=== PATIENT | female | born 1960 | race Caucasian/White ===

== ENCOUNTER 2020-04-18 12:34 | Emergency (ER) | payer MEDICAID ==
[~2020-04-18] VITALS: Ht 162.6 cm; Wt 75.7 kg
[2020-04-18] MEDS ORDERED: doxycycline inj 100 MG in normal saline 100ml IV soln 100 ML IV STA (14:59)
[2020-04-18 15:22] LABS: BASOPHILS # (AUTO) 0.1 X10'3 (0-0.2); EOSINOPHILS # (AUTO) 0.3 X10'3 (0-0.9); HEMATOCRIT 43.4 % (35.0-45.0); HEMOGLOBIN 14.6 g/dl (12.0-16.0); LYMPHOCYTES # (AUTO) 1.2 X10'3 (1.1-4.8); LYMPHOCYTES % (AUTO) 18.4 % (21-51); MEAN CORPUSCULAR HEMOGLOBIN 31.4 PG (27.0-31.0); MEAN CORPUSCULAR HGB CONC 33.7 g/dL (33.0-36.5); MEAN CORPUSCULAR VOLUME 93.1 FL (78-98); MEAN PLATELET VOLUME 7.8 FL (7.4-10.4); MONOCYTES # (AUTO) 0.5 X10'3 (0-0.9); MONOCYTES % (AUTO) 7.7 % (2-12); NEUTROPHILS # (AUTO) 4.5 X10'3 (1.8-7.7); NEUTROPHILS % (AUTO) 68.9 % (42-75); PLATELET COUNT 336 X10'3 (140-440); RED BLOOD COUNT 4.66 X10'6 (4.20-5.60); RED CELL DISTRIBUTION WIDTH 13.3 % (11.5-14.5); WHITE BLOOD COUNT 6.6 X10'3 (4.5-11.0)
[2020-04-18 15:24] LABS: ALANINE AMINOTRANSFERASE 23 U/L (12-78); ALBUMIN 4.1 G/DL (3.4-5.0); ALKALINE PHOSPHATASE 114 IU/L (46-116); ANION GAP 11 (8-16); ASPARTATE AMINO TRANSFERASE 24 U/L (10-37); BILIRUBIN,TOTAL 0.4 MG/DL (0.1-1.0); BLOOD UREA NITROGEN 12 MG/DL (7-18); BUN/CREATININE RATIO 14.1 (6.6-38.0); CALCIUM 9.1 MG/DL (8.5-10.1); CHLORIDE 98 MMOL/L (99-107); CREATININE 0.85 MG/DL (0.40-0.90); GLUCOSE 85 MG/DL (70-104); POTASSIUM 4.3 MMOL/L (3.5-5.1); SODIUM 137 MMOL/L (135-145); TOTAL CARBON DIOXIDE 28.3 MMOL/L (24-32); TOTAL PROTEIN 8.3 G/DL (6.4-8.2); eGFR 69 ML/MIN
[2020-04-18] MEDS ORDERED: DOXY100C77 PO (15:35)
--- NOTE | 2020-04-18 17:39 | NUR ---
CALLED PEDRITO TAVAREZ. ORDERED: ELEVATE LOWER EXTREMITIES RECHECK BP IN 20 MINUTES.
[2020-04-18] MEDS ORDERED: cloNIDine 0.1 mg tablet PO ONE (18:10)
[2020-04-18 18:28] VITALS: BP 167/101
== END 2020-04-18 18:30 | disposition home or self-care (01) ==
LOC: ER 12:36
DX: S81.802A Unspecified open wound, left lower leg, initial encounter (principal); M19.90 Unspecified osteoarthritis, unspecified site; Z98.890 Other specified postprocedural states; X58.XXXA Exposure to other specified factors, initial encounter; Y93.89 Activity, other specified; Y92.89 Other specified places as the place of occurrence of the external cause; Y99.8 Other external cause status
CPT/HCPCS: 36415; 80053; 85025; 96365; 99284; J3490

== ENCOUNTER 2020-04-24 08:39 | Outpatient (CLI) | payer MEDICAID ==
[~2020-04-24 08:39] MED LIST: DOXY100C77 PO
[2020-04-24] MEDS ORDERED: LIDOcaine 2% 5ml jelly ONE ×2 (09:16→09:32)
== END 2020-04-24 23:59 | disposition home or self-care (01) ==
LOC: WOUND CARE 08:39 → EDSTATUS 09:00 → WOUND CARE 23:59
PROVIDERS: ATTEND Nurse Practitioner Family
DX: L97.222 Non-pressure chronic ulcer of left calf with fat layer exposed (principal); S81.802D Unspecified open wound, left lower leg, subsequent encounter; M19.90 Unspecified osteoarthritis, unspecified site; Z98.890 Other specified postprocedural states; Z87.891 Personal history of nicotine dependence; X58.XXXD Exposure to other specified factors, subsequent encounter
CPT/HCPCS: G0463

== ENCOUNTER 2020-05-08 10:22 | Outpatient (CLI) | payer MEDICAID, OTHER | END 2020-05-08 23:59 | disposition home or self-care (01) | LOC: WOUND CARE 10:22 | PROVIDERS: ATTEND Nurse Practitioner Family | DX: S81.802D Unspecified open wound, left lower leg, subsequent encounter (principal); M19.90 Unspecified osteoarthritis, unspecified site; Z98.890 Other specified postprocedural states; Z87.891 Personal history of nicotine dependence; X58.XXXD Exposure to other specified factors, subsequent encounter | CPT/HCPCS: G0463 ==

== ENCOUNTER 2020-05-13 13:05 | Emergency (ER) | payer MEDICAID ==
[~2020-05-13] VITALS: Ht 162.6 cm; Wt 68.2 kg
[2020-05-13 13:10] VITALS: BP 189/132
[2020-05-13] MEDS ORDERED: gentamicin 0.1% topical ointment 15gm TP ONE (15:35)
== END 2020-05-13 16:10 | disposition home or self-care (01) ==
LOC: ER 13:05
DX: L97.929 Non-pressure chronic ulcer of unspecified part of left lower leg with unspecified severity (principal); Z48.01 Encounter for change or removal of surgical wound dressing; M19.90 Unspecified osteoarthritis, unspecified site; Z98.890 Other specified postprocedural states
CPT/HCPCS: 99283

== ENCOUNTER 2020-06-20 14:00 | Inpatient (IN) | payer MEDICAID ==
[~2020-06-20] VITALS: Ht 162.6 cm; Wt 62.7 kg
[2020-06-20] MEDS ORDERED: acetaminophen 325mg tablet PO PRN ×2 (14:55)
[2020-06-20] MEDS ORDERED: ondansetron/PF 4mg/2ml inj IV PRN (14:55)
[2020-06-20] MEDS ORDERED: HYDROcodone/acetaminophen 5mg/325mg tablet PO PRN (14:55)
[2020-06-20] MEDS ORDERED: mag hydrox/Alum hydrox/simeth 30ml oral suspension PO PRN (14:55)
[2020-06-20] MEDS ORDERED: metoclopramide 5 mg/ml inj IV PRN (14:55)
[2020-06-20] MEDS ORDERED: bisacodyl 10mg suppository rectal RC PRN (14:55)
[2020-06-20] MEDS ORDERED: temazepam 15mg capsule PO PRN (14:55)
[2020-06-20] MEDS ORDERED: magnesium hydroxide 30ml (MOM) UD suspension PO PRN (14:55)
[2020-06-20] MEDS ORDERED: magnesium 4gm in 100ml NS 100 ML IV PRN (15:00)
[2020-06-20] MEDS ORDERED: magnesium Cl slow-release 64mg tablet PO PRN (15:00)
[2020-06-20] MEDS ORDERED: potassium Cl 20 mEq SR tablet PO PRN ×2 (15:00)
[2020-06-20] MEDS ORDERED: potassium Cl 40MEQ/1/2NS 520ml 520 ML IV PRN ×2 (15:00)
[2020-06-20] MEDS ORDERED: CefTRIAXone/D5W-Rocephin 1gm 50 ML IV ONE (15:00)
[2020-06-20] MEDS ORDERED: acetaminophen 650mg rectal suppository RC PRN (15:00)
[2020-06-20] MEDS ORDERED: magnesium 2GM in 50ml NS 50 ML IV PRN (15:00)
[2020-06-20] MEDS ORDERED: vancomycin/NS 1 GM ADD-VANTAGE 250 ML IV ONE (15:05)
--- NOTE | 2020-06-20 15:37 | NUR ---
Patient in room [facility]. I have received report from Wound Care OP and had the opportunity to ask questions and assume patient care.
[2020-06-20] MEDS: normal saline 1000ml 1,000 ML IV SCH (16:19)
[2020-06-20] MEDS: HYDROcodone/acetaminophen 10/325mg tab PO PRN (16:53)
[2020-06-20] MEDS ORDERED: COLL30OI TOP (17:07)
[2020-06-20] MEDS ORDERED: NAPR220T67 PO (17:07)
--- NOTE | 2020-06-20 17:15 | NUR ---
PAGER ID: [phone] MESSAGE: Laury MendozaB I redid your lab orders on the correct account / visit. Micaela [phone]
--- NOTE | 2020-06-20 18:20 | NUR ---
Patient in room [facility] 347B. I have received report from DAHLIA Hinojosa and had the opportunity to ask questions and assume patient care.
--- NOTE | 2020-06-20 18:28 | NUR ---
Problems reprioritized. Patient report given, questions answered & plan of care reviewed with Bella VILLAGOMEZ.
[2020-06-20] MEDS: normal saline 1000ml 500 ML IV SCH (18:34)
[2020-06-20 19:30] VITALS: BP 155/89
[2020-06-20] MEDS: K and/or MAG REPLACEMENT MC SCH (21:00)
[2020-06-21] VITALS: BP 137/87
[2020-06-21] MEDS: normal saline 1000ml 1,000 ML IV SCH ×3 (00:55→20:42)
[2020-06-21] MEDS: HYDROcodone/acetaminophen 10/325mg tab PO PRN ×2 (01:59→18:54)
[2020-06-21] MEDS: vancomycin/NS 1 GM ADD-VANTAGE 250 ML IV SCH ×2 (05:07→18:53)
--- NOTE | 2020-06-21 06:13 | NUR ---
Problems reprioritized. Patient report given, questions answered & plan of care reviewed with DALHIA Vick.
--- NOTE | 2020-06-21 06:45 | NUR ---
Patient in room [facility] 347B. I have received report from DAHLIA DICKERSON and had the opportunity to ask questions and assume patient care.
[2020-06-21 07:00] VITALS: BP 147/81
[2020-06-21] MEDS: K and/or MAG REPLACEMENT MC SCH ×2 (08:00→20:00)
[2020-06-21] MEDS: HYDROmorphone inj. 0.5 MG/0.5 ML DISP.SYRIN IV PRN ×3 (08:30→20:43)
--- NOTE | 2020-06-21 08:41 | NUR ---
WOCN team providing wd care . Pt c/o pain 10/10 and tearful. Pt medicated w/ Dilaudid 0.5mg per order during drsg change. This nurse instructed pt to be premedicated before drsg changes begin.
[2020-06-21] MEDS: CefTRIAXone/D5W-Rocephin 1gm 50 ML IV SCH (09:29)
[2020-06-21] MEDS: Dakins solution (1/4 strength) 473ml solution TP SCH (09:35)
--- NOTE | 2020-06-21 09:51 | NUR ---
WOUND INFECTION EDUCATION PROVIDED BY WOUND CARE 1. Patient instructed to call their primary doctor, or go the ED immediately if any of the following symptoms occur: * Increased pain in wound * Increase in drainage from the wound * Redness in the skin surrounding the wound * Warmth in the skin surrounding the wound * Bleeding from the wound * Temperature of 101 or greater 2. If any of these occur while in the hospital tell a nurse immediately. Addendum: 06/21/20 at 0951 by Dena Aparicio RN Amended: Links added.
[2020-06-21 11:00] VITALS: BP 178/102
[2020-06-21 11:31] LABS: BASOPHILS # (AUTO) 0.1 X10'3 (0-0.2); BASOPHILS % (AUTO) 1.5 % (0-1); EOSINOPHILS # (AUTO) 0.3 X10'3 (0-0.9); EOSINOPHILS % (AUTO) 3.8 % (0-6); HEMOGLOBIN 11.6 g/dl (12.0-16.0); LYMPHOCYTES # (AUTO) 1.2 X10'3 (1.1-4.8); MEAN CORPUSCULAR HGB CONC 33.1 g/dL (33.0-36.5); MEAN CORPUSCULAR VOLUME 90.4 FL (78-98); MEAN PLATELET VOLUME 6.7 FL (7.4-10.4); MONOCYTES # (AUTO) 0.5 X10'3 (0-0.9); MONOCYTES % (AUTO) 7.5 % (2-12); NEUTROPHILS % (AUTO) 70.2 % (42-75); PLATELET COUNT 405 X10'3 (140-440); RED BLOOD COUNT 3.87 X10'6 (4.20-5.60); RED CELL DISTRIBUTION WIDTH 13.9 % (11.5-14.5); WHITE BLOOD COUNT 7.2 X10'3 (4.5-11.0)
[2020-06-21 11:50] LABS: ALANINE AMINOTRANSFERASE 17 U/L (12-78); ALBUMIN 2.9 G/DL (3.4-5.0); ALBUMIN/GLOBULIN RATIO 0.8 (1.1-1.5); ALKALINE PHOSPHATASE 91 IU/L (46-116); ANION GAP 8 (8-16); ASPARTATE AMINO TRANSFERASE 15 U/L (10-37); BILIRUBIN,TOTAL 0.3 MG/DL (0.1-1.0); BLOOD UREA NITROGEN 15 MG/DL (7-18); BUN/CREATININE RATIO 19.7 (6.6-38.0); CALCIUM 8.7 MG/DL (8.5-10.1); CHLORIDE 103 MMOL/L (99-107); CREATININE 0.76 MG/DL (0.40-0.90); GLUCOSE 92 MG/DL (70-104); POTASSIUM 4.1 MMOL/L (3.5-5.1); SODIUM 138 MMOL/L (135-145); TOTAL CARBON DIOXIDE 27.5 MMOL/L (24-32); TOTAL PROTEIN 6.7 G/DL (6.4-8.2); eGFR 78 ML/MIN
--- NOTE | 2020-06-21 13:26 | NUR ---
Initial: Pt admit with worsening left leg wound. Per WO notes pt with full thickness traumatic injury to left calf that is approximately 2 months old. Pt on a regular diet documented with 75% PO intake first meal meeting estimated nutrient needs. Recommend Ventura shake BIDLD for wound healing needs. ONS to be sent with MD approval in EMR. [facility] 06/20. Will continue to follow and monitor need for further nutrition intervention pending additional trends in PO intake. Recommendations: 1) Continue regular diet 2) Ventura shake BIDLD for wound healing needs, pending MD verification 3) Bowel care per rx 4) Scaled weights per rx Addendum: 06/21/20 at [address] Amended: Links added.
[2020-06-21] MEDS ORDERED: vancomycin/NS 1 GM ADD-VANTAGE 250 ML IV SCH (17:00)
[2020-06-21] MEDS: normal saline 1000ml 500 ML IV SCH (17:10)
--- NOTE | 2020-06-21 18:35 | NUR ---
Patient in room [facility] 347B. I have received report from DAHLIA Vick and had the opportunity to ask questions and assume patient care.
--- NOTE | 2020-06-21 18:45 | NUR ---
Problems reprioritized. Patient report given, questions answered & plan of care reviewed with DAHLIA DICKERSON.
[2020-06-21] MEDS: lactobacillus rhamnosus 10,000 MMU CELLS/CAPSULE PO SCH (20:41)
[2020-06-21 23:53] VITALS: BP 154/96
--- NOTE | 2020-06-22 00:17 | NUR ---
Problems reprioritized. Patient report given, questions answered & plan of care reviewed with DHALIA Morrow.
--- NOTE | 2020-06-22 00:30 | NUR ---
Patient in room [facility] 347. I have received report from JAYLA VILLAGOMEZ and had the opportunity to ask questions and assume patient care.
[2020-06-22] MEDS ORDERED: VANCOMYCIN LEVEL IV ONE (04:30)
[2020-06-22] MEDS: HYDROcodone/acetaminophen 10/325mg tab PO PRN ×3 (04:42→18:53)
[2020-06-22] MEDS: normal saline 1000ml 500 ML IV SCH (04:47)
[2020-06-22 05:05] LABS: BASOPHILS # (AUTO) 0.1 X10'3 (0-0.2); BASOPHILS % (AUTO) 1.3 % (0-1); EOSINOPHILS # (AUTO) 0.3 X10'3 (0-0.9); EOSINOPHILS % (AUTO) 3.9 % (0-6); HEMATOCRIT 34.7 % (35.0-45.0); HEMOGLOBIN 11.4 g/dl (12.0-16.0); LYMPHOCYTES # (AUTO) 1.4 X10'3 (1.1-4.8); LYMPHOCYTES % (AUTO) 18.1 % (21-51); MEAN CORPUSCULAR HGB CONC 32.9 g/dL (33.0-36.5); MEAN CORPUSCULAR VOLUME 91.3 FL (78-98); MONOCYTES # (AUTO) 0.6 X10'3 (0-0.9); MONOCYTES % (AUTO) 8.1 % (2-12); NEUTROPHILS # (AUTO) 5.2 X10'3 (1.8-7.7); NEUTROPHILS % (AUTO) 68.6 % (42-75); PLATELET COUNT 389 X10'3 (140-440); RED CELL DISTRIBUTION WIDTH 13.2 % (11.5-14.5); WHITE BLOOD COUNT 7.5 X10'3 (4.5-11.0)
[2020-06-22 05:15] LABS: ALANINE AMINOTRANSFERASE 11 U/L (12-78); ALBUMIN 2.7 G/DL (3.4-5.0); ALBUMIN/GLOBULIN RATIO 0.8 (1.1-1.5); ALKALINE PHOSPHATASE 95 IU/L (46-116); ANION GAP 11 (8-16); ASPARTATE AMINO TRANSFERASE 15 U/L (10-37); BILIRUBIN,TOTAL 0.3 MG/DL (0.1-1.0); BLOOD UREA NITROGEN 12 MG/DL (7-18); CALCIUM 8.2 MG/DL (8.5-10.1); CHLORIDE 104 MMOL/L (99-107); CREATININE 0.75 MG/DL (0.40-0.90); GLUCOSE 97 MG/DL (70-104); MAGNESIUM 1.8 MG/DL (1.5-2.4); POTASSIUM 3.9 MMOL/L (3.5-5.1); SODIUM 139 MMOL/L (135-145); TOTAL CARBON DIOXIDE 24.5 MMOL/L (24-32); TOTAL PROTEIN 6.3 G/DL (6.4-8.2); eGFR 80 ML/MIN
[2020-06-22 05:31] LABS: VANCOMYCIN,TROUGH 21.3 UG/ML (6.0-14.0)
--- NOTE | 2020-06-22 05:35 | NUR ---
CALLED PHARMACIST REGARDING CRITICAL VANCO TROUGH 21,3 WITH ORDER TO CONTINUE THE DOSE AND IT WILL BE ADJUSTED FOR THE NEXT DOSE.
[2020-06-22] MEDS: vancomycin/NS 1 GM ADD-VANTAGE 250 ML IV SCH (05:41)
--- NOTE | 2020-06-22 06:30 | NUR ---
Problems reprioritized. Patient report given, questions answered & plan of care reviewed with MAGALI VILLAGOMEZ.
[2020-06-22] MEDS: normal saline 1000ml 1,000 ML IV SCH ×2 (06:55→15:12)
[2020-06-22 07:00] VITALS: BP 167/91
[2020-06-22] MEDS: K and/or MAG REPLACEMENT MC SCH ×2 (08:00→20:00)
[2020-06-22] MEDS: lactobacillus rhamnosus 10,000 MMU CELLS/CAPSULE PO SCH ×2 (08:36→19:00)
[2020-06-22] MEDS: CefTRIAXone/D5W-Rocephin 1gm 50 ML IV SCH (08:36)
[2020-06-22] MEDS: Dakins solution (1/4 strength) 473ml solution TP SCH (08:43)
[2020-06-22] MEDS: HYDROmorphone inj. 0.5 MG/0.5 ML DISP.SYRIN IV PRN (11:15)
[2020-06-22 11:59] VITALS: BP 185/104
[2020-06-22 15:13] VITALS: BP 152/92
[2020-06-22] MEDS: vancomycin inj. 750 MG in normal saline 250ml IV soln 250 ML IV SCH (17:11)
[2020-06-22 18:00] VITALS: BP 168/95
--- NOTE | 2020-06-22 18:14 | NUR ---
Problems reprioritized. Patient report given, questions answered & plan of care reviewed with BRUCE BARRERA RN.
--- NOTE | 2020-06-22 18:30 | NUR ---
Patient in room [facility] 347. I have received report from MAGALI VILLAGOMEZ and had the opportunity to ask questions and assume patient care.
[2020-06-22] MEDS ORDERED: enoxaparin 40mg/0.4ml syringe SUBCUT ONE (21:00)
[2020-06-23] VITALS: BP 177/90
[2020-06-23] MEDS: normal saline 1000ml 1,000 ML IV SCH (02:29)
[2020-06-23] MEDS: HYDROcodone/acetaminophen 10/325mg tab PO PRN ×2 (03:25→09:27)
[2020-06-23] MEDS: vancomycin inj. 750 MG in normal saline 250ml IV soln 250 ML IV SCH (05:19)
--- NOTE | 2020-06-23 06:25 | NUR ---
Patient in room [facility] 347. I have received report from Pamela Santiago RN and had the opportunity to ask questions and assume patient care.
[2020-06-23 06:30] VITALS: BP 164/85
--- NOTE | 2020-06-23 06:30 | NUR ---
Problems reprioritized. Patient report given, questions answered & plan of care reviewed with ROCK RN.
[2020-06-23 07:42] LABS: BASOPHILS # (AUTO) 0.1 X10'3 (0-0.2); BASOPHILS % (AUTO) 1.9 % (0-1); EOSINOPHILS # (AUTO) 0.3 X10'3 (0-0.9); EOSINOPHILS % (AUTO) 4.6 % (0-6); HEMATOCRIT 32.2 % (35.0-45.0); HEMOGLOBIN 10.9 g/dl (12.0-16.0); LYMPHOCYTES # (AUTO) 1.3 X10'3 (1.1-4.8); LYMPHOCYTES % (AUTO) 19.8 % (21-51); MEAN CORPUSCULAR HEMOGLOBIN 30.1 PG (27.0-31.0); MEAN CORPUSCULAR HGB CONC 33.7 g/dL (33.0-36.5); MEAN CORPUSCULAR VOLUME 89.4 FL (78-98); MEAN PLATELET VOLUME 7.1 FL (7.4-10.4); MONOCYTES # (AUTO) 0.5 X10'3 (0-0.9); MONOCYTES % (AUTO) 7.3 % (2-12); NEUTROPHILS # (AUTO) 4.3 X10'3 (1.8-7.7); NEUTROPHILS % (AUTO) 66.4 % (42-75); PLATELET COUNT 363 X10'3 (140-440); RED BLOOD COUNT 3.61 X10'6 (4.20-5.60); RED CELL DISTRIBUTION WIDTH 13.1 % (11.5-14.5); WHITE BLOOD COUNT 6.5 X10'3 (4.5-11.0)
[2020-06-23] MEDS: K and/or MAG REPLACEMENT MC SCH (08:00)
[2020-06-23 08:13] LABS: ALANINE AMINOTRANSFERASE 18 U/L (12-78); ALBUMIN 2.4 G/DL (3.4-5.0); ALBUMIN/GLOBULIN RATIO 0.7 (1.1-1.5); ALKALINE PHOSPHATASE 91 IU/L (46-116); ANION GAP 7 (8-16); ASPARTATE AMINO TRANSFERASE 17 U/L (10-37); BILIRUBIN,TOTAL 0.2 MG/DL (0.1-1.0); BLOOD UREA NITROGEN 8 MG/DL (7-18); BUN/CREATININE RATIO 10.8 (6.6-38.0); CALCIUM 8.3 MG/DL (8.5-10.1); CHLORIDE 105 MMOL/L (99-107); CREATININE 0.74 MG/DL (0.40-0.90); GLUCOSE 100 MG/DL (70-104); MAGNESIUM 1.8 MG/DL (1.5-2.4); POTASSIUM 3.8 MMOL/L (3.5-5.1); SODIUM 138 MMOL/L (135-145); TOTAL CARBON DIOXIDE 26.2 MMOL/L (24-32); TOTAL PROTEIN 5.8 G/DL (6.4-8.2); eGFR 81 ML/MIN
[2020-06-23] MEDS: lactobacillus rhamnosus 10,000 MMU CELLS/CAPSULE PO SCH (09:20)
[2020-06-23] MEDS: CefTRIAXone/D5W-Rocephin 1gm 50 ML IV SCH (09:20)
[2020-06-23] MEDS: Dakins solution (1/4 strength) 473ml solution TP SCH (09:21)
[2020-06-23 11:00] VITALS: BP 179/103
[2020-06-23] MEDS: HYDROmorphone inj. 0.5 MG/0.5 ML DISP.SYRIN IV PRN (11:16)
[2020-06-23] MEDS ORDERED: LEVO750T46 PO (11:39)
[2020-06-23] MEDS ORDERED: HYDR-3972 PO (11:39)
[2020-06-23] MEDS ORDERED: furosemide 40mg/4ml inj IV ONE (12:10)
[2020-06-23 13:28] VITALS: BP 154/97
--- NOTE | 2020-06-23 15:00 | NUR ---
DC inst provided to pt. IV DC'd, tip intact. All belongings sent w/pt. WC to pt's vehicle in parking lot.
[2020-06-23] MEDS ORDERED: enoxaparin 40mg/0.4ml syringe SUBCUT SCH (20:00)
[2020-06-24] MEDS ORDERED: VANCOMYCIN LEVEL IV ONE (04:30)
== END 2020-06-23 15:06 | disposition home or self-care (01) | DRG 383 ==
LOC: SUR 3N 14:00
PROVIDERS: ADMIT Family Medicine; ATTEND Family Medicine
DX: L03.116 Cellulitis of left lower limb (principal); D64.9 Anemia, unspecified; Z96.643 Presence of artificial hip joint, bilateral; S80.922A Unspecified superficial injury of left lower leg, initial encounter; X58.XXXA Exposure to other specified factors, initial encounter; M19.90 Unspecified osteoarthritis, unspecified site; Z90.49 Acquired absence of other specified parts of digestive tract; Z79.899 Other long term (current) drug therapy; Y93.89 Activity, other specified; Y92.89 Other specified places as the place of occurrence of the external cause; Y99.8 Other external cause status
CPT/HCPCS: 36415; 76937; 80053; 80202; 83735; 85025; 87070; 87077; 87081; G0378; J0696; J1170; J1650; J1940; J3370; J7030; J7050

== ENCOUNTER → 2020-07-07 | Outpatient (CLI) | payer MEDICAID ==
[~2020-07-07] MED LIST changes: +COLL30OI TOP; -DOXY100C77 PO; +HYDR-3972 PO; +LEVO750T46 PO; +LIDOcaine 2% 5ml jelly ONE; +NAPR220T67 PO
== END | disposition home or self-care (01) ==
LOC: WOUND CARE 14:47
PROVIDERS: ATTEND Nurse Practitioner
DX: L97.222 Non-pressure chronic ulcer of left calf with fat layer exposed (principal); S81.802D Unspecified open wound, left lower leg, subsequent encounter; M19.90 Unspecified osteoarthritis, unspecified site; Z98.890 Other specified postprocedural states; Z87.891 Personal history of nicotine dependence; Z90.49 Acquired absence of other specified parts of digestive tract; Z96.643 Presence of artificial hip joint, bilateral; Z79.899 Other long term (current) drug therapy; X58.XXXD Exposure to other specified factors, subsequent encounter
CPT/HCPCS: 15273; 15274; Q4196

== ENCOUNTER 2020-09-01 11:41 | Emergency (ER) | payer MEDICAID ==
[~2020-09-01] VITALS: Ht 162.6 cm; Wt 59.1 kg
[~2020-09-01 11:41] MED LIST changes: -LIDOcaine 2% 5ml jelly ONE
[2020-09-01 13:10] VITALS: BP 225/125
[2020-09-01 14:14] LABS: BASOPHILS # (AUTO) 0.1 X10'3 (0-0.2); BASOPHILS % (AUTO) 1.5 % (0-1); EOSINOPHILS # (AUTO) 0.2 X10'3 (0-0.9); EOSINOPHILS % (AUTO) 2.7 % (0-6); HEMATOCRIT 38.4 % (35.0-45.0); HEMOGLOBIN 12.6 g/dl (12.0-16.0); LYMPHOCYTES # (AUTO) 1.2 X10'3 (1.1-4.8); MEAN CORPUSCULAR HEMOGLOBIN 29.3 PG (27.0-31.0); MEAN CORPUSCULAR HGB CONC 32.9 g/dL (33.0-36.5); MEAN CORPUSCULAR VOLUME 89.1 FL (78-98); MEAN PLATELET VOLUME 7.3 FL (7.4-10.4); MONOCYTES # (AUTO) 0.7 X10'3 (0-0.9); NEUTROPHILS # (AUTO) 5.2 X10'3 (1.8-7.7); NEUTROPHILS % (AUTO) 69.8 % (42-75); PLATELET COUNT 364 X10'3 (140-440); RED CELL DISTRIBUTION WIDTH 14.3 % (11.5-14.5); WHITE BLOOD COUNT 7.5 X10'3 (4.5-11.0)
[2020-09-01 14:20] LABS: ALANINE AMINOTRANSFERASE 17 U/L (12-78); ALBUMIN/GLOBULIN RATIO 1.1 (1.1-1.5); ALKALINE PHOSPHATASE 99 IU/L (46-116); ANION GAP 12 (8-16); ASPARTATE AMINO TRANSFERASE 20 U/L (10-37); BILIRUBIN,TOTAL 0.7 MG/DL (0.1-1.0); BLOOD UREA NITROGEN 15 MG/DL (7-18); BUN/CREATININE RATIO 16.5 (6.6-38.0); CALCIUM 8.6 MG/DL (8.5-10.1); CHLORIDE 100 MMOL/L (99-107); CREATININE 0.91 MG/DL (0.40-0.90); GLUCOSE 91 MG/DL (70-104); POTASSIUM 3.7 MMOL/L (3.5-5.1); SODIUM 138 MMOL/L (135-145); TOTAL CARBON DIOXIDE 26.1 MMOL/L (24-32); TOTAL PROTEIN 7.8 G/DL (6.4-8.2); eGFR 63 ML/MIN
== END 2020-09-01 18:19 | disposition left against medical advice (07) ==
LOC: ER 11:42
DX: L02.416 Cutaneous abscess of left lower limb (principal); Z53.21 Procedure and treatment not carried out due to patient leaving prior to being seen by health care provider
CPT/HCPCS: 36415; 71045; 80053; 83605; 84145; 85025; 87040

== ENCOUNTER 2020-09-03 12:29 | Inpatient (IN) | payer MEDICAID ==
[~2020-09-03] VITALS: Ht 162.6 cm; Wt 62.7 kg
[2020-09-03] MEDS ORDERED: HYDROcodone/acetaminophen 5mg/325mg tablet PO ONE (13:20)
[2020-09-03] MEDS ORDERED: ketorolac tromethamine 15mg/ml inj. IV ONE (13:20)
[2020-09-03 14:06] LABS: BASOPHILS # (AUTO) 0.1 X10'3 (0-0.2); EOSINOPHILS # (AUTO) 0.2 X10'3 (0-0.9); EOSINOPHILS % (AUTO) 2.2 % (0-6); HEMATOCRIT 38.4 % (35.0-45.0); HEMOGLOBIN 12.6 g/dl (12.0-16.0); LYMPHOCYTES # (AUTO) 1.1 X10'3 (1.1-4.8); LYMPHOCYTES % (AUTO) 13.2 % (21-51); MEAN CORPUSCULAR HEMOGLOBIN 29.3 PG (27.0-31.0); MEAN CORPUSCULAR HGB CONC 32.9 g/dL (33.0-36.5); MEAN CORPUSCULAR VOLUME 89.3 FL (78-98); MEAN PLATELET VOLUME 7.5 FL (7.4-10.4); MONOCYTES # (AUTO) 0.7 X10'3 (0-0.9); MONOCYTES % (AUTO) 8.8 % (2-12); NEUTROPHILS # (AUTO) 6.4 X10'3 (1.8-7.7); NEUTROPHILS % (AUTO) 74.8 % (42-75); PLATELET COUNT 364 X10'3 (140-440); RED CELL DISTRIBUTION WIDTH 13.9 % (11.5-14.5); WHITE BLOOD COUNT 8.5 X10'3 (4.5-11.0)
[2020-09-03 14:13] LABS: ALANINE AMINOTRANSFERASE 18 U/L (12-78); ALBUMIN 3.2 G/DL (3.4-5.0); ALBUMIN/GLOBULIN RATIO 0.9 (1.1-1.5); ALKALINE PHOSPHATASE 94 IU/L (46-116); ANION GAP 8 (8-16); ASPARTATE AMINO TRANSFERASE 16 U/L (10-37); BILIRUBIN,TOTAL 0.3 MG/DL (0.1-1.0); BLOOD UREA NITROGEN 11 MG/DL (7-18); BUN/CREATININE RATIO 13.6 (6.6-38.0); CALCIUM 8.6 MG/DL (8.5-10.1); CHLORIDE 102 MMOL/L (99-107); CREATININE 0.81 MG/DL (0.40-0.90); GLUCOSE 79 MG/DL (70-104); MAGNESIUM 2.1 MG/DL (1.5-2.4); POTASSIUM 3.5 MMOL/L (3.5-5.1); SODIUM 137 MMOL/L (135-145); TOTAL CARBON DIOXIDE 27.3 MMOL/L (24-32); TOTAL PROTEIN 6.9 G/DL (6.4-8.2); eGFR 73 ML/MIN
[2020-09-03] MEDS ORDERED: morphine 2 MG/ML inj. syringe IV ONE (14:30)
[2020-09-03] MEDS: ondansetron/PF 4mg/2ml inj IV ONE ×2 (14:59→16:12)
[2020-09-03] MEDS ORDERED: CefTRIAXone 2gm/D5W 50ml BAG 50 ML IV ONE (15:20)
[2020-09-03] MEDS ORDERED: vancomycin/NS 1 GM ADD-VANTAGE 250 ML IV ONE (15:20)
[2020-09-03] MEDS ORDERED: morphine 4 MG/ML inj SYRINge IV ONE (15:25)
--- NOTE | 2020-09-03 16:43 | NUR ---
PICTURES IN CHART.
[2020-09-03] MEDS ORDERED: hydrALAZINE 20mg/ml inj. IV ONE (17:25)
[2020-09-03] MEDS ORDERED: mag hydrox/Alum hydrox/simeth 30ml oral suspension PO PRN (17:35)
[2020-09-03] MEDS ORDERED: morphine 2 MG/ML inj. syringe IV PRN (17:35)
[2020-09-03] MEDS ORDERED: ondansetron/PF 4mg/2ml inj IV PRN (17:35)
[2020-09-03] MEDS ORDERED: acetaminophen 325mg tablet PO PRN (17:35)
[2020-09-03] MEDS: normal saline 1000ml 1,000 ML IV SCH (18:08)
--- NOTE | 2020-09-03 19:52 | NUR ---
I have received report from Madina VILLAGOMEZ and had the opportunity to ask questions and assume patient care.
[2020-09-03 20:00] VITALS: BP 165/108
[2020-09-03] MEDS: morphine 2 MG/ML inj. syringe IV PRN (20:28)
[2020-09-03] MEDS ORDERED: amLODIPine 5mg tablet PO ONE (21:30)
[2020-09-04] VITALS: BP 156/93
[2020-09-04] MEDS: morphine 2 MG/ML inj. syringe IV PRN ×3 (03:49→16:50)
[2020-09-04] MEDS: normal saline 1000ml 1,000 ML IV SCH ×3 (03:54→23:35)
[2020-09-04] MEDS: vancomycin/NS 1 GM ADD-VANTAGE 250 ML IV SCH ×2 (04:53→16:55)
--- NOTE | 2020-09-04 06:34 | NUR ---
Problems reprioritized. Patient report given, questions answered & plan of care reviewed with Celena VILLAGOMEZ.
--- NOTE | 2020-09-04 06:36 | NUR ---
Patient in room [facility] 340. I have received report from yaya VILLAGOMEZ and had the opportunity to ask questions and assume patient care.
--- NOTE | 2020-09-04 06:38 | NUR ---
Patient in room [facility] 340. I have received report from DAHLIA Ayon and had the opportunity to ask questions and assume patient care.
[2020-09-04 06:57] LABS: ALBUMIN 2.6 G/DL (3.4-5.0); ANION GAP 9 (8-16); BLOOD UREA NITROGEN 10 MG/DL (7-18); BUN/CREATININE RATIO 13.7 (6.6-38.0); CALCIUM 8.1 MG/DL (8.5-10.1); CHLORIDE 106 MMOL/L (99-107); CREATININE 0.73 MG/DL (0.40-0.90); GLUCOSE 103 MG/DL (70-104); POTASSIUM 3.9 MMOL/L (3.5-5.1); SODIUM 140 MMOL/L (135-145); TOTAL CARBON DIOXIDE 25.3 MMOL/L (24-32); eGFR 82 ML/MIN
[2020-09-04 07:06] LABS: BASOPHILS # (AUTO) 0.1 X10'3 (0-0.2); EOSINOPHILS # (AUTO) 0.2 X10'3 (0-0.9); EOSINOPHILS % (AUTO) 3.3 % (0-6); HEMOGLOBIN 12.1 g/dl (12.0-16.0); LYMPHOCYTES # (AUTO) 0.7 X10'3 (1.1-4.8); LYMPHOCYTES % (AUTO) 11.5 % (21-51); MEAN CORPUSCULAR HEMOGLOBIN 29.4 PG (27.0-31.0); MEAN CORPUSCULAR HGB CONC 32.8 g/dL (33.0-36.5); MEAN CORPUSCULAR VOLUME 89.7 FL (78-98); MEAN PLATELET VOLUME 7.6 FL (7.4-10.4); MONOCYTES # (AUTO) 0.5 X10'3 (0-0.9); MONOCYTES % (AUTO) 8.2 % (2-12); NEUTROPHILS # (AUTO) 4.7 X10'3 (1.8-7.7); PLATELET COUNT 334 X10'3 (140-440); RED BLOOD COUNT 4.12 X10'6 (4.20-5.60); RED CELL DISTRIBUTION WIDTH 14.4 % (11.5-14.5); WHITE BLOOD COUNT 6.2 X10'3 (4.5-11.0)
[2020-09-04] MEDS: enoxaparin 40mg/0.4ml syringe SUBCUT SCH (07:35)
[2020-09-04] MEDS: silver sulfadiazine cream 50gm TP SCH (08:00)
--- NOTE | 2020-09-04 10:00 | NUR ---
patient was seen today by Dr lane. wound consult put in. lab called to say patient had gram positive cocci in clusters in right arm culture .Dr lane made aware. patient is already on IV ABX
[2020-09-04] MEDS ORDERED: hydrALAZINE 20mg/ml inj. IV PRN (10:05)
[2020-09-04] MEDS: amLODIPine 5mg tablet PO SCH (10:17)
[2020-09-04 11:00] VITALS: BP 158/88
--- NOTE | 2020-09-04 17:32 | NUR ---
Patient wound on left leg changed. Medicated prior and applied silver sulfadine cream to xerofoam and onto the leg. wrapped with sherrie bandage.
--- NOTE | 2020-09-04 18:18 | NUR ---
Student documentation: I have reviewed and agree with all interventions, assessments performed and documented by Shani marshall RN.
--- NOTE | 2020-09-04 18:22 | NUR ---
Problems reprioritized. Patient report given, questions answered & plan of care reviewed with DAHLIA KELLEY.
--- NOTE | 2020-09-04 18:44 | NUR ---
Patient in room [facility] 340. I have received report from Celena VILLAGOMEZ and had the opportunity to ask questions and assume patient care.
[2020-09-04] MEDS: lactobacillus rhamnosus 10,000 MMU CELLS/CAPSULE PO SCH (19:58)
[2020-09-04] MEDS: HYDROcodone/acetaminophen 5mg/325mg tablet PO PRN (19:59)
[2020-09-04 20:00] VITALS: BP 165/91
[2020-09-04 20:30] VITALS: BP 156/93
[2020-09-04 23:24] VITALS: BP 155/86
[2020-09-05] MEDS: HYDROcodone/acetaminophen 5mg/325mg tablet PO PRN ×3 (00:12→09:07)
[2020-09-05] MEDS: normal saline 1000ml 1,000 ML IV SCH ×2 (04:16→14:59)
[2020-09-05] MEDS ORDERED: VANCOMYCIN LEVEL IV ONE (04:30)
[2020-09-05] MEDS: vancomycin/NS 1 GM ADD-VANTAGE 250 ML IV SCH ×2 (04:36→16:39)
[2020-09-05 04:48] LABS: BASOPHILS % (AUTO) 0.6 % (0-1); EOSINOPHILS # (AUTO) 0.3 X10'3 (0-0.9); EOSINOPHILS % (AUTO) 3.9 % (0-6); HEMATOCRIT 37.3 % (35.0-45.0); HEMOGLOBIN 12.1 g/dl (12.0-16.0); LYMPHOCYTES % (AUTO) 15.8 % (21-51); MEAN CORPUSCULAR HEMOGLOBIN 28.9 PG (27.0-31.0); MEAN CORPUSCULAR HGB CONC 32.4 g/dL (33.0-36.5); MEAN CORPUSCULAR VOLUME 89.1 FL (78-98); MEAN PLATELET VOLUME 7.5 FL (7.4-10.4); MONOCYTES # (AUTO) 0.6 X10'3 (0-0.9); NEUTROPHILS # (AUTO) 4.7 X10'3 (1.8-7.7); NEUTROPHILS % (AUTO) 70.7 % (42-75); PLATELET COUNT 334 X10'3 (140-440); RED BLOOD COUNT 4.18 X10'6 (4.20-5.60); RED CELL DISTRIBUTION WIDTH 13.7 % (11.5-14.5); WHITE BLOOD COUNT 6.6 X10'3 (4.5-11.0)
[2020-09-05 04:52] LABS: ALBUMIN 2.5 G/DL (3.4-5.0); ANION GAP 9 (8-16); BLOOD UREA NITROGEN 8 MG/DL (7-18); BUN/CREATININE RATIO 10.5 (6.6-38.0); CALCIUM 7.9 MG/DL (8.5-10.1); CHLORIDE 104 MMOL/L (99-107); CREATININE 0.76 MG/DL (0.40-0.90); GLUCOSE 95 MG/DL (70-104); POTASSIUM 3.8 MMOL/L (3.5-5.1); SODIUM 139 MMOL/L (135-145); TOTAL CARBON DIOXIDE 26.4 MMOL/L (24-32); VANCOMYCIN,TROUGH 16.3 UG/ML (6.0-14.0); eGFR 78 ML/MIN
--- NOTE | 2020-09-05 06:12 | NUR ---
Problems reprioritized. Patient report given, questions answered & plan of care reviewed with Celena VILLAGOMEZ.
--- NOTE | 2020-09-05 06:17 | NUR ---
Patient in room [facility] 340. I have received report from yaya VILLAGOMEZ and had the opportunity to ask questions and assume patient care.
--- NOTE | 2020-09-05 06:20 | NUR ---
Patient in room [facility] 340. I have received report from ELENA VILLAGOMEZ and had the opportunity to ask questions and assume patient care.
--- NOTE | 2020-09-05 06:20 | NUR ---
Patient in room [facility] 340. I have received report from ISABELLA Sahni and had the opportunity to ask questions and assume patient care.
[2020-09-05] MEDS: amLODIPine 5mg tablet PO SCH (07:21)
[2020-09-05] MEDS: lactobacillus rhamnosus 10,000 MMU CELLS/CAPSULE PO SCH ×2 (07:21→19:06)
[2020-09-05] MEDS: enoxaparin 40mg/0.4ml syringe SUBCUT SCH (07:22)
[2020-09-05 07:48] VITALS: BP 178/91
[2020-09-05] MEDS: silver sulfadiazine cream 50gm TP SCH (08:47)
[2020-09-05] MEDS: morphine 2 MG/ML inj. syringe IV PRN ×2 (10:12→23:03)
[2020-09-05 11:00] VITALS: BP 164/88
--- NOTE | 2020-09-05 11:06 | NUR ---
Student documentation: I have reviewed and agree with all interventions, assessments performed and documented by Steph, clinical nursing intern.
--- NOTE | 2020-09-05 11:07 | NUR ---
Student Medication Administration: For this medication-pass time frame, all medication were reviewed, dispensed, administered and documented per hospital policy by mehrdad Choi.
[2020-09-05] MEDS ORDERED: lisinopril 10 MG tablet PO ONE (12:05)
--- NOTE | 2020-09-05 12:05 | NUR ---
Initial: Pt admit for cellulitis with a large open wound of left leg, wound culture growing gram-positive cocci in cluster per MD note. Patient's wound is a full thickness venous ulcer per [facility] notes. Pt currently on a regular diet eating 100% PO intake throughout LOS. D/w dietary to send double protein with meals for satiety and increased protein needs r/t wound healing. LBM 5/, PRN bowel care available. Will continue to follow and monitor need for further nutrition intervention. Recommendations: 1) Continue regular diet 2) Double eggs WB, double meat BIDLD 3) Bowel care per rx 4) Scaled weight this admit; routine scaled weights thereafter Addendum: 09/05/20 at [address] Amended: Links added.
--- NOTE | 2020-09-05 12:35 | NUR ---
Patient in room [facility] 340. I have received report from Celena VILLAGOMEZ and had the opportunity to ask questions and assume patient care.
[2020-09-05] MEDS ORDERED: HYDROcodone/acetaminophen 5mg/325mg tablet PO PRN (13:20)
[2020-09-05] MEDS: HYDROcodone/acetaminophen 10/325mg tab PO PRN ×2 (14:59→19:07)
--- NOTE | 2020-09-05 16:04 | NUR ---
patient up and about to BR. Seen by Dr fish and DR lane. wound dressings changed to BID instead of daily per [facility], as patient is c/o extreme pain on leg when dressing removed as dried out. Pain meds reviewed by Dr lane, with effect. will continue to Monitor patient.
--- NOTE | 2020-09-05 17:46 | NUR ---
Problems reprioritized. Patient report given, questions answered & plan of care reviewed with Celena VILLAGOMEZ.
--- NOTE | 2020-09-05 17:48 | NUR ---
Problems reprioritized. Patient report given, questions answered & plan of care reviewed with yaya VILLAGOMEZ.
--- NOTE | 2020-09-05 18:39 | NUR ---
Patient in room [facility] 340. I have received report from Celena VILLAGOMEZ and had the opportunity to ask questions and assume patient care.
[2020-09-05 19:00] VITALS: BP 131/75
[2020-09-06] VITALS: BP 141/79
[2020-09-06] MEDS: HYDROcodone/acetaminophen 10/325mg tab PO PRN ×3 (02:35→20:56)
[2020-09-06] MEDS: normal saline 1000ml 1,000 ML IV SCH ×2 (02:36→16:58)
[2020-09-06] MEDS: vancomycin/NS 1 GM ADD-VANTAGE 250 ML IV SCH ×2 (05:17→16:58)
--- NOTE | 2020-09-06 06:30 | NUR ---
Problems reprioritized. Patient report given, questions answered & plan of care reviewed with Sandhya VILLAGOMEZ.
--- NOTE | 2020-09-06 06:32 | NUR ---
Patient in room [facility] 340-B. I have received report from DAHLIA Ayon and had the opportunity to ask questions and assume patient care.
--- NOTE | 2020-09-06 06:32 | NUR ---
Patient in room [facility] 340. I have received report from Nany VILLAGOMEZ and had the opportunity to ask questions and assume patient care.
[2020-09-06 07:02] LABS: BASOPHILS # (AUTO) 0.1 X10'3 (0-0.2); EOSINOPHILS # (AUTO) 0.2 X10'3 (0-0.9); MEAN CORPUSCULAR VOLUME 88.7 FL (78-98); MEAN PLATELET VOLUME 7.1 FL (7.4-10.4); MONOCYTES # (AUTO) 0.6 X10'3 (0-0.9); NEUTROPHILS # (AUTO) 3.8 X10'3 (1.8-7.7); WHITE BLOOD COUNT 5.7 X10'3 (4.5-11.0)
[2020-09-06 07:05] LABS: BASOPHILS % (AUTO) 1.5 % (0-1); HEMATOCRIT 34.6 % (35.0-45.0); HEMOGLOBIN 11.7 g/dl (12.0-16.0); LYMPHOCYTES % (AUTO) 17.6 % (21-51); MEAN CORPUSCULAR HEMOGLOBIN 29.9 PG (27.0-31.0); MEAN CORPUSCULAR HGB CONC 33.7 g/dL (33.0-36.5); NEUTROPHILS % (AUTO) 66.9 % (42-75); PLATELET COUNT 356 X10'3 (140-440); RED CELL DISTRIBUTION WIDTH 13.9 % (11.5-14.5)
[2020-09-06 07:19] LABS: ALBUMIN 2.4 G/DL (3.4-5.0); ANION GAP 7 (8-16); BLOOD UREA NITROGEN 5 MG/DL (7-18); BUN/CREATININE RATIO 8.3 (6.6-38.0); CALCIUM 8.2 MG/DL (8.5-10.1); CHLORIDE 105 MMOL/L (99-107); GLUCOSE 96 MG/DL (70-104); POTASSIUM 3.7 MMOL/L (3.5-5.1); SODIUM 138 MMOL/L (135-145); eGFR > 90 ML/MIN
[2020-09-06 08:00] VITALS: BP 168/85
[2020-09-06] MEDS: silver sulfadiazine cream 50gm TP SCH (08:00)
[2020-09-06] MEDS: lactobacillus rhamnosus 10,000 MMU CELLS/CAPSULE PO SCH ×2 (08:02→20:55)
[2020-09-06] MEDS: amLODIPine 5mg tablet PO SCH (08:03)
[2020-09-06] MEDS: lisinopril 10 MG tablet PO SCH (08:04)
[2020-09-06] MEDS: enoxaparin 40mg/0.4ml syringe SUBCUT SCH (08:05)
[2020-09-06] MEDS: morphine 2 MG/ML inj. syringe IV PRN (10:10)
[2020-09-06 11:00] VITALS: BP 176/94
--- NOTE | 2020-09-06 11:55 | NUR ---
Problems reprioritized. Patient report given, questions answered & plan of care reviewed with DAHLIA Arthur.
--- NOTE | 2020-09-06 18:28 | NUR ---
Problems reprioritized. Patient report given, questions answered & plan of care reviewed with pat RN.
[2020-09-06 19:00] VITALS: BP 165/81
[2020-09-06 19:30] VITALS: BP 149/88
--- NOTE | 2020-09-06 19:30 | NUR ---
pt states she's okay until next alyseco due time Addendum: 09/07/20 at 0102 by Juany Taylor RN Amended: Links added.
[2020-09-07] VITALS: BP 145/79
[2020-09-07] MEDS: HYDROcodone/acetaminophen 10/325mg tab PO PRN ×4 (01:42→21:21)
[2020-09-07] MEDS: normal saline 1000ml 1,000 ML IV SCH ×3 (04:39→16:47)
[2020-09-07] MEDS ORDERED: ketorolac tromethamine 15mg/ml inj. IV ONE (05:20)
[2020-09-07] MEDS: vancomycin/NS 1 GM ADD-VANTAGE 250 ML IV SCH ×2 (05:21→16:47)
--- NOTE | 2020-09-07 06:53 | NUR ---
Patient in room [facility] 340. I have received report from Pat RN and had the opportunity to ask questions and assume patient care.
[2020-09-07] MEDS: amLODIPine 5mg tablet PO SCH (07:49)
[2020-09-07] MEDS: lactobacillus rhamnosus 10,000 MMU CELLS/CAPSULE PO SCH ×2 (07:49→19:38)
[2020-09-07] MEDS: lisinopril 10 MG tablet PO SCH (07:50)
[2020-09-07] MEDS: enoxaparin 40mg/0.4ml syringe SUBCUT SCH (07:50)
[2020-09-07 08:00] VITALS: BP 154/95
[2020-09-07] MEDS: silver sulfadiazine cream 50gm TP SCH (08:00)
[2020-09-07 08:10] LABS: BASOPHILS # (AUTO) 0.1 X10'3 (0-0.2); BASOPHILS % (AUTO) 1.2 % (0-1); EOSINOPHILS # (AUTO) 0.2 X10'3 (0-0.9); HEMATOCRIT 38.3 % (35.0-45.0); HEMOGLOBIN 12.5 g/dl (12.0-16.0); LYMPHOCYTES # (AUTO) 1.1 X10'3 (1.1-4.8); LYMPHOCYTES % (AUTO) 21.9 % (21-51); MEAN CORPUSCULAR HEMOGLOBIN 29.1 PG (27.0-31.0); MEAN CORPUSCULAR HGB CONC 32.7 g/dL (33.0-36.5); MEAN CORPUSCULAR VOLUME 89.1 FL (78-98); MEAN PLATELET VOLUME 7.4 FL (7.4-10.4); MONOCYTES # (AUTO) 0.6 X10'3 (0-0.9); MONOCYTES % (AUTO) 11.5 % (2-12); NEUTROPHILS # (AUTO) 2.9 X10'3 (1.8-7.7); NEUTROPHILS % (AUTO) 60.4 % (42-75); PLATELET COUNT 349 X10'3 (140-440); RED CELL DISTRIBUTION WIDTH 14.1 % (11.5-14.5); WHITE BLOOD COUNT 4.8 X10'3 (4.5-11.0)
[2020-09-07 08:23] LABS: ALBUMIN 2.5 G/DL (3.4-5.0); ANION GAP 10 (8-16); BLOOD UREA NITROGEN 5 MG/DL (7-18); BUN/CREATININE RATIO 8.6 (6.6-38.0); CALCIUM 8.4 MG/DL (8.5-10.1); CHLORIDE 105 MMOL/L (99-107); CREATININE 0.58 MG/DL (0.40-0.90); GLUCOSE 84 MG/DL (70-104); POTASSIUM 3.6 MMOL/L (3.5-5.1); SODIUM 141 MMOL/L (135-145); TOTAL CARBON DIOXIDE 25.9 MMOL/L (24-32); eGFR > 90 ML/MIN
[2020-09-07] MEDS ORDERED: morphine 2 MG/ML inj. syringe IV PRN (14:55)
[2020-09-07 17:09] VITALS: BP 171/86
[2020-09-07 17:33] VITALS: BP 154/95
[2020-09-07 18:00] VITALS: BP 162/108
--- NOTE | 2020-09-07 18:21 | NUR ---
Problems reprioritized. Patient report given, questions answered & plan of care reviewed with Prudence RN.
--- NOTE | 2020-09-07 18:25 | NUR ---
Patient in room [facility] 340. I have received report from BELKYS VILLAGOMEZ and had the opportunity to ask questions and assume patient care.
[2020-09-07] MEDS: magnesium hydroxide 30ml (MOM) UD suspension PO PRN (19:46)
--- NOTE | 2020-09-07 22:03 | NUR ---
WOUND CARE PROVIDED PER WOUND CARE ORDER
--- NOTE | 2020-09-07 23:31 | NUR ---
Student documentation: I have reviewed all interventions, assessments performed and documented by Yandy Bruno Casar. Student Medication Administration: For this medication-pass time frame, all medication were reviewed, dispensed, administered and documented per hospital policy [facility]
[2020-09-07 23:54] VITALS: BP 146/85
--- NOTE | 2020-09-08 00:22 | NUR ---
Student documentation: I have reviewed and agree with all interventions, assessments performed and documented by HA (STUDENT).
--- NOTE | 2020-09-08 00:24 | NUR ---
Student Medication Administration: For this medication-pass time frame, all medication were reviewed, dispensed, administered and documented per hospital policy by HA (STUDENT).
[2020-09-08] MEDS: normal saline 1000ml 1,000 ML IV SCH ×2 (04:56→17:30)
[2020-09-08] MEDS: vancomycin/NS 1 GM ADD-VANTAGE 250 ML IV SCH ×2 (04:56→17:30)
[2020-09-08 06:15] LABS: ALBUMIN 2.6 G/DL (3.4-5.0); ANION GAP 8 (8-16); BLOOD UREA NITROGEN 7 MG/DL (7-18); BUN/CREATININE RATIO 10.3 (6.6-38.0); CALCIUM 8.7 MG/DL (8.5-10.1); CHLORIDE 106 MMOL/L (99-107); CREATININE 0.68 MG/DL (0.40-0.90); GLUCOSE 93 MG/DL (70-104); POTASSIUM 4.1 MMOL/L (3.5-5.1); SODIUM 142 MMOL/L (135-145); TOTAL CARBON DIOXIDE 28.5 MMOL/L (24-32); eGFR 89 ML/MIN
[2020-09-08 06:17] LABS: BASOPHILS # (AUTO) 0.1 X10'3 (0-0.2); BASOPHILS % (AUTO) 1.7 % (0-1); EOSINOPHILS # (AUTO) 0.2 X10'3 (0-0.9); EOSINOPHILS % (AUTO) 4.3 % (0-6); HEMATOCRIT 37.3 % (35.0-45.0); HEMOGLOBIN 12.3 g/dl (12.0-16.0); LYMPHOCYTES # (AUTO) 0.9 X10'3 (1.1-4.8); LYMPHOCYTES % (AUTO) 16.2 % (21-51); MEAN CORPUSCULAR HEMOGLOBIN 29.3 PG (27.0-31.0); MEAN CORPUSCULAR HGB CONC 32.9 g/dL (33.0-36.5); MEAN PLATELET VOLUME 7.2 FL (7.4-10.4); MONOCYTES # (AUTO) 0.5 X10'3 (0-0.9); MONOCYTES % (AUTO) 9.3 % (2-12); NEUTROPHILS # (AUTO) 3.7 X10'3 (1.8-7.7); NEUTROPHILS % (AUTO) 68.5 % (42-75); PLATELET COUNT 401 X10'3 (140-440); RED BLOOD COUNT 4.19 X10'6 (4.20-5.60); RED CELL DISTRIBUTION WIDTH 14.1 % (11.5-14.5); WHITE BLOOD COUNT 5.4 X10'3 (4.5-11.0)
[2020-09-08 07:30] VITALS: BP 170/87
[2020-09-08] MEDS: silver sulfadiazine cream 50gm TP SCH (08:00)
[2020-09-08] MEDS: lactobacillus rhamnosus 10,000 MMU CELLS/CAPSULE PO SCH ×2 (08:58→19:32)
[2020-09-08] MEDS: amLODIPine 5mg tablet PO SCH (08:58)
[2020-09-08] MEDS: enoxaparin 40mg/0.4ml syringe SUBCUT SCH (08:58)
[2020-09-08] MEDS: lisinopril 10 MG tablet PO SCH (08:58)
[2020-09-08 11:49] VITALS: BP 146/90
[2020-09-08] MEDS: HYDROcodone/acetaminophen 10/325mg tab PO PRN ×2 (13:07→19:32)
[2020-09-08] MEDS: magnesium hydroxide 30ml (MOM) UD suspension PO PRN (13:08)
--- NOTE | 2020-09-08 18:14 | NUR ---
Problems reprioritized. Patient report given, questions answered & plan of care reviewed with DAHLIA JAVIER.
--- NOTE | 2020-09-08 18:40 | NUR ---
Patient in room [facility] 340. I have received report from PETE VILLAGOMEZ and had the opportunity to ask questions and assume patient care.
[2020-09-08 20:00] VITALS: BP 143/77
[2020-09-09 00:34] VITALS: BP 134/74
[2020-09-09] MEDS: normal saline 1000ml 1,000 ML IV SCH ×2 (03:54→13:22)
[2020-09-09] MEDS: HYDROcodone/acetaminophen 10/325mg tab PO PRN (03:54)
[2020-09-09] MEDS: vancomycin/NS 1 GM ADD-VANTAGE 250 ML IV SCH (04:51)
--- NOTE | 2020-09-09 05:27 | NUR ---
WOUND CARE PERFORMED Addendum: 09/09/20 at 0528 by Shima Easton RN Amended: Links added.
--- NOTE | 2020-09-09 06:21 | NUR ---
Problems reprioritized. Patient report given, questions answered & plan of care reviewed with PETE VILLAGOMEZ.
[2020-09-09 07:24] LABS: BASOPHILS # (AUTO) 0.1 X10'3 (0-0.2); BASOPHILS % (AUTO) 0.9 % (0-1); EOSINOPHILS # (AUTO) 0.2 X10'3 (0-0.9); EOSINOPHILS % (AUTO) 3.8 % (0-6); HEMATOCRIT 36.8 % (35.0-45.0); HEMOGLOBIN 12.4 g/dl (12.0-16.0); LYMPHOCYTES # (AUTO) 1.1 X10'3 (1.1-4.8); LYMPHOCYTES % (AUTO) 19.9 % (21-51); MEAN CORPUSCULAR HEMOGLOBIN 29.9 PG (27.0-31.0); MEAN CORPUSCULAR HGB CONC 33.6 g/dL (33.0-36.5); MEAN CORPUSCULAR VOLUME 88.9 FL (78-98); MEAN PLATELET VOLUME 6.8 FL (7.4-10.4); MONOCYTES # (AUTO) 0.6 X10'3 (0-0.9); MONOCYTES % (AUTO) 10.5 % (2-12); NEUTROPHILS # (AUTO) 3.7 X10'3 (1.8-7.7); NEUTROPHILS % (AUTO) 64.9 % (42-75); PLATELET COUNT 358 X10'3 (140-440); RED BLOOD COUNT 4.14 X10'6 (4.20-5.60); RED CELL DISTRIBUTION WIDTH 13.9 % (11.5-14.5); WHITE BLOOD COUNT 5.7 X10'3 (4.5-11.0)
[2020-09-09 07:35] VITALS: BP 140/76
[2020-09-09 07:41] LABS: ALANINE AMINOTRANSFERASE 35 U/L (12-78); ALBUMIN 2.5 G/DL (3.4-5.0); ALBUMIN/GLOBULIN RATIO 0.7 (1.1-1.5); ALKALINE PHOSPHATASE 139 IU/L (46-116); ANION GAP 8 (8-16); ASPARTATE AMINO TRANSFERASE 39 U/L (10-37); BILIRUBIN,TOTAL 0.2 MG/DL (0.1-1.0); BLOOD UREA NITROGEN 7 MG/DL (7-18); BUN/CREATININE RATIO 11.3 (6.6-38.0); CALCIUM 8.5 MG/DL (8.5-10.1); CHLORIDE 106 MMOL/L (99-107); CREATININE 0.62 MG/DL (0.40-0.90); GLUCOSE 96 MG/DL (70-104); SODIUM 138 MMOL/L (135-145); TOTAL CARBON DIOXIDE 23.6 MMOL/L (24-32); TOTAL PROTEIN 6.1 G/DL (6.4-8.2); eGFR > 90 ML/MIN
[2020-09-09] MEDS: silver sulfadiazine cream 50gm TP SCH (08:00)
[2020-09-09] MEDS: lisinopril 10 MG tablet PO SCH (08:25)
[2020-09-09] MEDS: amLODIPine 5mg tablet PO SCH (08:25)
[2020-09-09] MEDS: lactobacillus rhamnosus 10,000 MMU CELLS/CAPSULE PO SCH (08:25)
[2020-09-09] MEDS: enoxaparin 40mg/0.4ml syringe SUBCUT SCH (08:26)
[2020-09-09] MEDS ORDERED: DOXY-243 PO (11:24)
[2020-09-09] MEDS ORDERED: LACT1CAP26 PO (11:24)
[2020-09-09] MEDS ORDERED: NOR5T PO (11:24)
[2020-09-09] MEDS ORDERED: CEPH250T PO (11:24)
[2020-09-09] MEDS ORDERED: LISI10TA27 PO (11:24)
[2020-09-09 12:05] VITALS: BP 163/94
--- NOTE | 2020-09-09 14:01 | NUR ---
patient stable and appropriate for discharge home. IV removed, all belongings taken from room. New prescriptions transmitted to preferred pharmacy. patient is aware of next due doses on all new and home medications. patient will call wound care clinic Friday to schedule appointment, she is already established there. all discharge instructions and education was given and reviewed with patient, verbalized understanding, all questions answered. She was sent home with dressing change supplies and she completed a return demonstration of dressing change.
== END 2020-09-09 14:10 | disposition home or self-care (01) | DRG 383 ==
LOC: ER 12:30 → ED HOLD 17:32 → EDBEDREQSVC 18:39 → SUR 3N 20:15
PROVIDERS: ADMIT Family Medicine; ATTEND Family Medicine
DX: L03.116 Cellulitis of left lower limb (principal); B96.89 Other specified bacterial agents as the cause of diseases classified elsewhere; I10 Essential (primary) hypertension; L88 Pyoderma gangrenosum; M19.90 Unspecified osteoarthritis, unspecified site
CPT/HCPCS: 36415; 80048; 80053; 80202; 83605; 83735; 84145; 85025; 87040; 87077; 87081; 87186; 96365; 99285; G0378; J0360; J0696; J1650; J1885; J2270; J2405; J3370; J7030